=== PATIENT | female | born 1990 | race Asian ===

== ENCOUNTER 2020-12-16 01:59 | Emergency (ER) | payer MEDICAID ==
[~2020-12-16] VITALS: Ht 152.4 cm; Wt 77.3 kg
[2020-12-16] MEDS ORDERED: LORA-999 PO (02:38)
[2020-12-16] MEDS ORDERED: DIPH50CA35 PO (02:38)
[2020-12-16] MEDS ORDERED: OLAN2.5T29 PO (02:38)
[2020-12-16] MEDS ORDERED: BENZ1TAB10 PO (02:38)
[2020-12-16] MEDS ORDERED: SERT-158 PO (02:38)
[2020-12-16 05:29] LABS: APPEARANCE,URINE CLEAR (CLEAR); BILIRUBIN,URINE NEGATIVE (NEGATIVE); GLUCOSE, URINE (UA) NEGATIVE (NEGATIVE); KETONES,URINE NEGATIVE (NEGATIVE); LEUKOCYTE ESTERASE ,URINE NEGATIVE (NEGATIVE); NITRATE,URINE NEGATIVE (NEGATIVE); OCCULT BLOOD,URINE NEGATIVE (NEGATIVE); PH,URINE 6.5 (5.0-8.0); PROTEIN,URINE NEGATIVE (NEGATIVE); UROBILINOGEN,URINE 0.2 mg/dL (<=1.0)
[2020-12-16 05:43] LABS: BASOPHILS % (AUTO) 0.7 % (0.0-2.0); EOSINOPHILS % (AUTO) 5.4 % (1.0-6.0); HEMATOCRIT 38.9 % (36-46); HEMOGLOBIN 13.1 g/dL (12.0-16.0); LYMPHOCYTES # (AUTO) 2.1 K/uL (1.0-4.8); LYMPHOCYTES % (AUTO) 29.6 % (22.0-44.0); MEAN CORPUSCULAR HEMOGLOBIN 27.9 pg (26.0-34.0); MEAN CORPUSCULAR HGB CONC 33.7 G/dL (31.0-37.0); MEAN CORPUSCULAR VOLUME 83 fL (80-100); MONOCYTES # (AUTO) 0.6 K/uL (0.1-1.0); MONOCYTES % (AUTO) 8.9 % (2.0-9.0); NEUTROPHILS % (AUTO) 55.4 % (40.0-70.0); PLATELET COUNT (AUTO) 209 K/uL (150-450)
[2020-12-16 05:53] LABS: ANION GAP 9 mmol/L (8-16); CALCIUM, TOTAL 8.5 mg/dL (8.8-10.5); CARBON DIOXIDE 26 mmol/L (22-29); CHLORIDE 104 mmol/L (98-107); CREATININE 0.74 mg/dL (0.60-1.30); GLOMERULAR FILTR. RATE CALC > 60 mL/min (>60); GLUCOSE,RANDOM 95 mg/dL (70-110); POTASSIUM 3.7 mmol/L (3.5-5.1); SODIUM SERUM 139 mmol/L (136-145); UREA NITROGEN, BLOOD 9 mg/dL (7-18)
[2020-12-16 06:04] LABS: ALANINE AMINOTRANSFERASE 42 U/L (12-78); ALBUMIN 3.5 g/dL (3.4-5.0); ALKALINE PHOSPHATASE 118 U/L (46-116); ASPARTATE AMINOTRANSFERASE 20 U/L (15-37); BILIRUBIN,TOTAL 0.3 mg/dL (0.1-1.0); HCG,QUANTITATIVE < 1 mIU/mL (0-6); TOTAL PROTEIN, SERUM 7.1 g/dL (6.4-8.2)
[2020-12-16 08:02] LABS: FREE T4 (FREE THYROXINE) 0.7 ng/dL (0.76-1.46); THYROID STIMULATING HORMONE 5.26 uIU/mL (0.36-3.74)
[2020-12-16] MEDS ORDERED: LEVOTHYROXINE SODIUM 25 MCG TABLET PO ONE (08:30)
[2020-12-16 08:48] VITALS: BP 122/72
== END 2020-12-16 09:36 | disposition home or self-care (01) ==
LOC: EMS 02:03
DX: R60.0 Localized edema (principal); E03.9 Hypothyroidism, unspecified; F41.9 Anxiety disorder, unspecified
CPT/HCPCS: 71045; 80053; 81003; 83880; 84439; 84443; 84702; 85025; 99285; 36415-L1; 36415-TC

== ENCOUNTER 2021-12-09 18:36 | Emergency (ER) | payer MEDICAID ==
[~2021-12-09] VITALS: Ht 165.1 cm; Wt 54.0 kg
[~2021-12-09 18:36] MED LIST: BENZ1TAB96 PO; DIPH50CA35 PO; LORA-999 PO; OLAN2.5T29 PO; SERT-158 PO
[2021-12-09 21:19] LABS: BASOPHILS % (AUTO) 0.6 % (0.0-2.0); EOSINOPHILS % (AUTO) 5.2 % (1.0-6.0); HEMATOCRIT 40.2 % (36-46); LYMPHOCYTES # (AUTO) 2.6 K/uL (1.0-4.8); LYMPHOCYTES % (AUTO) 25.6 % (22.0-44.0); MEAN CORPUSCULAR HEMOGLOBIN 28.1 pg (26.0-34.0); MEAN CORPUSCULAR HGB CONC 34.9 G/dL (31.0-37.0); MEAN CORPUSCULAR VOLUME 81 fL (80-100); MONOCYTES # (AUTO) 0.6 K/uL (0.1-1.0); MONOCYTES % (AUTO) 5.8 % (2.0-9.0); NEUTROPHILS # (AUTO) 6.3 K/uL (1.8-7.7); NEUTROPHILS % (AUTO) 62.8 % (40.0-70.0); PLATELET COUNT (AUTO) 255 K/uL (150-450); RED CELL DISTRIBUTION WIDTH 15.3 % (11.5-14.5)
[2021-12-09 21:32] LABS: ANION GAP 11 mmol/L (8-16); CALCIUM, TOTAL 9.1 mg/dL (8.8-10.5); CARBON DIOXIDE 27 mmol/L (22-29); CHLORIDE 104 mmol/L (98-107); GLUCOSE,RANDOM 103 mg/dL (70-110); POTASSIUM 3.6 mmol/L (3.5-5.1); SODIUM SERUM 142 mmol/L (136-145); UREA NITROGEN, BLOOD 7 mg/dL (7-18)
[2021-12-09 21:33] LABS: GLOMERULAR FILTR. RATE CALC > 60 mL/min (>60)
[2021-12-09 21:52] LABS: HCG,QUANTITATIVE < 1 mIU/mL (0-6)
[2021-12-09 21:54] VITALS: BP 115/78
[2021-12-09 22:22] LABS: COVID AG,FIA SOURCE NASOPHARYNGEAL
[2021-12-09] MEDS ORDERED: BENZ-70 PO (22:41)
== END 2021-12-09 22:57 | disposition home or self-care (01) ==
LOC: EMS 19:08
DX: R05.9 Cough, unspecified (principal); R11.10 Vomiting, unspecified; F41.9 Anxiety disorder, unspecified; Z79.899 Other long term (current) drug therapy; Z20.822 Contact with and (suspected) exposure to COVID-19
CPT/HCPCS: 71045; 80048; 84702; 85025; 99284; 36415-L1; 36415-TC